=== PATIENT | male | born 1980 | race Two or more races ===

== ENCOUNTER 2024-08-22 19:09 | Emergency (ER) | payer MEDICAID, SELFPAY ==
[2024-08-22 19:09] VITALS: BMI 22.4
[2024-08-22 20:17] VITALS: BP 128/83; PULSE 76; RESP 18; TEMP 37; O2SAT 97
--- NOTE | 2024-08-22 20:26 | PD.EDANX ---
ED Anxiety RME/HPI General Chief Complaint: Recheck/Abnormal Lab/Rx Stated Complaint: BP AT HOME 141/101 Time Seen by Provider: 08/22/24 19:24 Arrival date/time: 08/22/24 19:09 RME / HPI RME / HPI narrative: 43-year-old male presents with complaints of an elevated blood pressure reading at home. States he checks his blood pressure at home and it was 141/101. He also describes an episode earlier today where he was at the store and his hands got tingly as did his tongue. He had a little bit of lightheadedness as well. He states that after seeing that his blood pressure was elevated he looked up information about elevated blood pressure on the Internet and that caused him to become anxious. Denies chest pain or shortness of breath. Denies abdominal pain. Denies headache. Related Data Home Medications ?Medication ?Instructions ?Recorded ?Confirmed No Known Home Medications 08/26/19 08/26/19 Allergies Allergy/AdvReac Type Severity Reaction Status Date / Time No Known Allergies Allergy Verified 08/22/24 19:11 Review of Systems Review of Systems Narrative Review of Systems: Review of systems negative except as outlined in the HPI. ED Exam Narrative Physical exam: Constitutional: no acute distress, age appropriate, non-toxic Eyes: PERRL, conjunctivae w/o pallor, EOMI HENT: normocephalic, atraumatic. Oral mucosa moist Respiratory Effort: no stridor, effort normal, no retractions Breath sounds: Clear bilaterally; No rales, No rhonchi, No wheezing Cardiovascular: regular rhythm, S1 and S2 normal, no murmur Abdominal: soft; non-distended, non-tender Musculoskeletal: no deformities, no swelling, no LE edema Skin: warm, dry; No rash Neurology: alert, oriented X 4. Normal gait. Moves all extremities spontaneously. Psychology: cooperative, normal mood Course Quality Measures none Vital Signs Vital signs: Vital Signs Temperature 98.6 F 08/22/24 20:17 Pulse Rate 76 08/22/24 20:17 Respiratory Rate 18 08/22/24 20:17 Blood Pressure 128/83 08/22/24 20:17 Pulse Oximetry (%) 97 08/22/24 20:17 Oxygen Delivery Method Room Air 08/22/24 20:17 Anxiety MDM Narrative MDM Narrative: 43-year-old male presents with elevated blood pressure reading at home and lightheadedness. Differential diagnoses include anxiety, panic attack, hypertensive urgency, hypertensive emergency. Patient appears well and nontoxic, in no acute distress. BP here is 128/83. He is not having chest pain or shortness of breath. Do not suspect hypertensive urgency or hypertensive emergency. Symptoms most consistent with anxiety. Discussed with patient that he should follow-up with his PCP in the next 2 to 3 days for recheck of blood pressure and to address symptoms of anxiety. Strict return to ED precautions given. Patient data External records reviewed:: [facility] previous records Clinical information provided by:: patient Social determinants that could affect healthcare access:: none Patient has the following chronic illnesses:: None How is presenting disease/condition affected by chronic disease/condition?: no chronic disease Evaluation data The following diagnostics were reviewed and interpreted by me:: other (specify) (N/A) Lab and/or radiology exams considered but not ordered:: Consider labs and chest x-ray, but not indicated. See MDM section above Interpretation Summary: N/A Medications / Prescriptions Medications or Prescriptions considered but not ordered:: N/A Medication administrations:: N/A Consultations Consultation(s) initiated? (list below): No Diagnosis Differential diagnosis anxiety: other (See MDM section above) Most likely diagnosis given after review of the tests above:: Acute anxiety Admission Indicated Admission indicated?: not indicated Admission Request Was there a request for admission?: No Disposition Plan Disposition Plan: Discharge Discharge Attestation Discharge Attestation: The patient and all family members were given an opportunity to ask questions and understood the discharge instructions. Discharge instructions specifically effects, indications for sooner follow up or return to the emergency department, and the expected course of current diagnosis. Patient condition: Stable Discharge Plan Plan Patient Disposition: HOME (Self Care) Prescriptions/Referrals Prescriptions/Med Rec: No Action No Known Home Medications Referrals: No Primary/Family,Physician [Primary Care Provider] - In 1 week Problem List Clinical Impression: Acute anxiety Patient/Caregiver Discharge Instructions Education Materials: ED Anxiety Reaction Additional Instructions: Follow-up with your PCP this week. Return to the ED for any new or worsening symptoms Print Language: Senegalese Stand Alone Forms: Nelda Award Info., Patient Portal Info Letter
== END 2024-08-22 20:59 | disposition home or self-care (01) ==
PROVIDERS: Emergency Provider Emergency Medicine
DX: F41.9 Anxiety disorder, unspecified (principal)
CPT/HCPCS: 99281

== ENCOUNTER 2025-02-18 00:22 | Emergency (ER) | payer MEDICAID, SELFPAY ==
[2025-02-18 00:23] VITALS: BMI 22.4
[2025-02-18 00:41] VITALS: BP 126/88; PULSE 84; RESP 20; TEMP 36.8; O2SAT 95
--- NOTE | 2025-02-18 01:07 | XR_ITS ---
Examination: PA chest single view TECHNIQUE: Upright PA chest single view Date and time: February 18, 2025, 0134 hours INDICATIONS: Shortness of breath chest pain today. FINDINGS: Normal heart size. Lungs are clear. Osseous structures are intact IMPRESSION: No active disease.
--- NOTE | 2025-02-18 01:07 | EKG_ITS ---
[facility] Test Date: 2025-02-18 Pat Name: EUSEBIA MAS Department: Room: - Gender: Male Physical Therapy Asst: : 1980 Requested By: Sammy Mir Order Number: [id number] Reading MD: Sammy Mir Measurements Intervals [place] Rate: 76 P: 45 AL: 146 QRS: 169 QRSD: 74 T: 29 QT: 344 QTc: 389 Interpretive Statements SINUS RHYTHM WITH SINUS ARRHYTHMIA INDETERMINATE AXIS POSSIBLE RIGHT VENTRICULAR HYPERTROPHY [SOME/ALL OF: PROMINENT R IN V1, LATE TRANSITION, RAD, AMADOR, SSS] Compared to ECG 05/29/2023 01:47:32 Left posterior fascicular block no longer present /store/S0/[id number]
[2025-02-18 02:28] LABS: Alanine Aminotransferase 45 U/L (10-49); Albumin, Serum 4.5 gm/dL (3.5-5.0); Albumin/Globulin Ratio 1.7 (1.2-2.2); Alkaline Phosphatase 97 U/L (46-116); Anion Gap 10 (7-16); Aspartate Amino Transferase 26 U/L (0-34); BUN/Creatinine Ratio 11 Ratio (12-20); Bilirubin,Total 0.4 mg/dL (0.3-1.2); Blood Urea Nitrogen 11 mg/dL (9-23); Calcium 8.8 mg/dL (8.3-10.6); Calcium (Corrected) 8.8 mg/dL (8.5-10.1); Carbon Dioxide 27.6 mMol/L (20.0-31.0); Chloride 104 mMol/L (98-107); Creatinine (Component) 1.0 mg/dL (0.6-1.3); Estimated Creatinine Clearance 83.3 mL/min (>60); Globulin 2.7 gm/dL (2.3-3.5); Glucose 97 mg/dL (74-106); Osmolality,Calculated 282 (275-295); Potassium 3.7 mMol/L (3.4-5.1); Sodium 142 mMol/L (136-145); Total Protein 7.2 gm/dL (5.7-8.2); Troponin I < 0.020 ng/mL (0.0-0.045); eGFR > 60 See Note
[2025-02-18 02:43] LABS: Basophils # (Auto) 0.1 Thou/mm3 (0.0-0.2); Basophils % (Auto) 1 % (0-2.5); Eosinophils # (Auto) 0.1 Thou/mm3 (0.0-0.5); Eosinophils % (Auto) 1 % (0-10); Hematocrit 44.2 % (41.0-53.0); Hemoglobin 15.2 g/dL (13.5-16.0); Immature Granulocytes Auto 0.03 Thou/mm3 (0.00-0.00); Lymphocytes # (Auto) 3.5 Thou/mm3 (1.0-4.8); Lymphocytes % (Auto) 38 % (10-50); Mean Corpuscular HGB Conc 34.4 g/dl (31.0-37.0); Mean Corpuscular Hemoglobin 29.7 pg (25.0-35.0); Mean Corpuscular Volume 86 fL (80-100); Monocytes # (Auto) 0.7 Thou/mm3 (0.0-0.8); Monocytes % (Auto) 8 % (0-12); Neutrophils # (Auto) 4.9 Thou/mm3 (1.8-7.7); Neutrophils % (Auto) 53 % (37-80); Nucleated Red Blood Cell # 0.00 Thou/mm3 (0.00-0.00); Nucleated Red Blood Cell % 0 /100 WBC (0); Platelet Count 280 Thou/mm3 (140-440); RDW Standard Deviation 38.4 fL (35.1-43.9); Red Blood Count 5.12 Miln/mm3 (4.50-5.90); White Blood Count 9.4 Thou/mm3 (3.8-10.6)
--- NOTE | 2025-02-18 02:50 | EDNOTE_ITS ---
ED SOB =RME/HPI General Chief Complaint: Anxiety Stated Complaint: SHORTNESS OF BREATH Time Seen by Provider: 02/18/25 00:41 Arrival date/time: 02/18/25 00:22 This is a case of 44-year-old male who came in in the emergency room due to palpitation and shortness of breath 1 hour prior to arrival in the emergency r oom patient drink a alcohol started to have some shortness of breath and mild palpitation patient started to have panic attacks thus patient decided to start consult here in the emergency room denies any suicidal or homicidal ideation denies any hallucination Limitations: no limitations Related Data Previous Rx's ?Medication ?Instructions ?Recorded hydroxyzine pamoate 25 mg capsule 25 mg PO BID PRN anx iety #10 caps 02/18/25 Allergies Allergy/AdvReac Type Severity Reaction Status Date / Time No Known Allergies Allergy Verified 02/18/25 00:30 Review of Systems Review of Systems Systems Reviewed: All systems reviewed, normal except as documented Constitutional Constitutional: Reports system reviewed and no additional complaints, except as documented and Reports as per HPI Cardiovascular Cardiovascular: Reports system reviewed and no additional complaints, except as documented, Reports as per HPI, Denies acrocyanosis, Denies chest pain, Denies chest pain at rest, Denies chest pain with activity, Denies claudication, Denies diaphoresis, Reports dyspnea, Denies dyspnea on exertion, Denies edema, Denies irregular heart rhythm, Denies leg edema, Denies leg ulcers, Denies lightheadedness, Denies orthopnea, Denies palpitations, Denies paroxysmal nocturnal dyspnea, Denies pedal edema, Denies radiating jaw, neck or arm pain, Reports rapid heart rate, Denies slow heart rate and Denies syncope Respiratory Respiratory: Reports system reviewed and no additional complaints, except as documented, Denies as per HPI, Denies chest congestion, Reports dyspnea and Denies dyspnea on exertion Genitourinary Genitourinary: Denies change in libido Musculoskeletal Musculoskeletal: Reports as per HPI Neurologic Neurologic: Reports system reviewed and no additional complaints, except as documented, Reports as per HPI, Denies behavioral changes, Denies confusion, Denies memory loss and Denies syncope Psychiatric Psychiatric: Reports system reviewed and no additional complaints, except as documented, Denies as per HPI, Denies abnormal sleep pattern, Denies anhedonia, Reports anxiety, Denies auditory hallucinations, Denies behavioral changes, Denies change in appetite, Denies change in libido, Denies confusion, Denies depression, Denies difficulty concentrating, Denies hallucinations, Denies homicidal ideation, Denies hopelessness, Denies irritability, Denies memory loss, Denies mood swings, Denies panic attacks, Denies paranoia, Denies suicidal ideation, Denies tactile hallucinations and Denies visual hallucinations Endocrine Endocrine: Denies change in libido and Denies palpitations ED Exam General Limitations: Present no limitations General appearance: Present alert, in no apparent distress and anxious; Absent appears intoxicated, lethargic, obtunded, in distress, obese or cachectic Head Head exam: Present atraumatic Eye Eye exam: Present normal appearance, PERRL and EOMI ENT ENT exam: Present normal exam, normal oropharynx and mucous membranes moist Neck Neck exam: Present normal inspection, full ROM and trachea midline; Absent tenderness, meningismus, lymphadenopathy or thyromegaly Chest Chest inspection: Present normal inspection and symmetric chest wall rise Respiratory Respiratory exam: Present normal lung sounds bilaterally; Absent respiratory distress, wheezes, stridor, accessory muscle use or prolonged expiratory phase Cardiovascular Cardiovascular exam: Present regular rate, normal rhythm and normal heart sounds Abdominal Exam Abdominal exam: Present soft and normal bowel sounds; Absent distention, tenderness, guarding, rebound, diminished bowel sounds or hyperactive bowel sounds Extremities Exam Extremities exam: Present normal inspection and full ROM Back Exam Back exam: Present normal inspection and full ROM Neurological Exam Neurological exam: Present alert, oriented X3, CN II-XII intact, normal gait and reflexes normal; Absent motor sensory deficit Psychiatric Psychiatric exam: Present normal affect, normal mood and anxious; Absent depressed, agitated, flat affect, manic, homicidal ideation or suicidal ideation Skin Skin exam: Present warm, dry, intact and normal color Course Quality Measures none Orders Category Date Time Status EKG (ED ONLY) *Do not use* NOW Care 02/18/25 01:07 Completed EKG (ED Only) Stat Exams 02/18/25 01:07 Draft XR chest 1V portable Stat Exams 02/18/25 01:07 Taken CBC Stat Lab 02/18/25 01:59 Completed CMP [Comprehensive Metabolic Panel] Stat Lab 02/18/25 01:59 Completed Troponin I Stat Lab 02/18/25 01:59 Completed LORazepam [Ativan] Med 02/18/25 02:41 Discontinued 1 mg PO X1 ONE Vital Signs Vital signs: Vital Signs Temperature 98.2 F 02/18/25 00:41 Pulse Rate 84 02/18/25 00:41 Respiratory Rate 20 02/18/25 00:41 Blood Pressure 126/88 H 02/18/25 00:41 Pulse Oximetry (%) 95 02/18/25 00:41 Oxygen Delivery Method Room Air 02/18/25 00:41 Shortness of Breath / Dyspnea MDM Narrative MDM Narrative:: This is a case of 44-year-old male who came in in the emergency room due to palpitation and shortness of breath 1 hour prior to arrival in the emergency room patient drink a alcohol started to have some shortness of breath and mild palpitation patient started to have panic attacks thus patient decided to start consult here in the emergency room denies any suicidal or homicidal ideation denies any hallucination physical examination patient is awake alert oriented not in distress nontoxic looking mild anxiety no depression denies suicidal or homicidal ideation lungs sound is clear no crackles no rales no retraction no stridor HEENT exam is normal normal rate regular rhythm no murmur patient blood test showed no leukocytosis no anemia kidney and liver function is normal no electrolyte imbalance troponin is negative EKG sinus rhythm 85 heart rate chest x-ray normal at this point patient blood and imaging were normal patient will be discharged as anxiety patient was given Ativan here patient condition markedly improved and resolved patient will follow-up with PCP to be referred to french instructor for palpitation for possible echocardiogram stress test and Holter monitor and to be referred to psychologist psychiatrist for anxiety patient was discharged with Vistaril Patient was discharged with comfortable condition walking with stable gait. Patient verbalized no further complains explained diagnosis and answered patient question. Patient is comfortable with the proposed management plan including the need to follow up with his/her primary care physician and any specialist if applicable Discussed patient for any urgent condition or worsening sx, He/She needed to go to emergency room immediately or call 911. Patient acknowledge the responsibility to follow up as instructed and to monitor her/his symptoms. For any persistence of the symptoms for more than 3-5 days return precaution advised. Discussed the result of the test and was given printed discharge instruction Patient data External records reviewed:: [facility] previous records Clinical information provided by:: patient Social determinants that could affect healthcare access:: none Patient has the following chronic illnesses:: None How is presenting disease/condition affected by chronic disease/condition?: no chronic disease Evaluation data The following diagnostics were reviewed and interpreted by me:: lab results and radiology exam(s) Lab and/or radiology exams considered but not ordered:: Reviewed Interpretation Summary: Reviewed Medications / Prescriptions Medications or Prescriptions considered but not ordered:: Given Medication administrations:: Medication Administration History Discontinued Medications Lorazepam (Lorazepam 0.5 Mg Tablet) 1 mg PO X1 ONE Stop: 02/18/25 02:42 Given Consultations Consultation(s) initiated? (list below): No Diagnosis Shortness of Breath Differential Diagnosis: other (Anxiety) Most likely diagnosis given after review of the tests above:: Anxiety Admission Indicated Admission indicated?: not indicated (Not indicated) Admission Request Was there a request for admission?: No Admission Attestation Admission request attestation: Not indicated Disposition Plan Disposition Plan: Discharge Discharge Attestation Discharge Attestation: The patient and all family members were given an opportunity to ask questions and understood the discharge instructions. Discharge instructions specifically effects, indications for sooner follow up or return to the emergency department, and the expected course of current diagnosis. Patient condition: Stable Discharge Plan Plan Patient Disposition: HOME (Self Care) Patient condition on transfer: Stable Prescriptions/Referrals Prescriptions/Med Rec: New hydroxyzine pamoate 25 mg capsule 25 mg PO BID PRN (Reason: anxiety) Qty: 10 0RF Problem List Clinical Impression: Palpitation, Anxiety Patient/Caregiver Discharge Instructions Education Materials: ED Anxiety Reaction, ED Palpitations Additional Instructions: Follow-up with your primary care physician in 2 days for reevaluation and to be referred to french instructor for further evaluation and treatment of palpitation for possible echocardiogram stress test and Holter monitor and to be referred to psychology psychiatry for anxiety for any recurrence worsening symptoms or any emergent concerns return in the emergency room immediately or call 911 take your medication as directed keep hydrated Print Language: Kyrgyz Stand Alone Forms: Nelda Award Info., Patient Portal Info Letter PA/AIDEE Supervising Physician TATUM/AIDEE Supervising Physician: dr mak
== END 2025-02-18 04:03 | disposition home or self-care (01) ==
LOC: SERX 03:51
PROVIDERS: Nurse Practitioner Family; Emergency Provider Emergency Medicine
DX: R00.2 Palpitations (principal); F41.9 Anxiety disorder, unspecified
CPT/HCPCS: 36415; 71045; 80053; 84484; 85025; 93005; 99283; A9270

== ENCOUNTER 2025-04-07 22:29 | Emergency (ER) | payer MEDICAID, SELFPAY ==
[2025-04-07 22:30] VITALS: BMI 22.4
--- NOTE | 2025-04-07 22:32 | EKG_ITS ---
[facility] Test Date: 2025-04-07 Pat Name: EUSEBIA MAS Department: Room: - Gender: Male Cardiac Rn: : 1980 Requested By: ED Temporary Provider Order Number: [id number] Reading MD: ED Temporary Provider Measurements Intervals [place] Rate: 74 P: 41 [place]: 146 QRS: -47 QRSD: 78 T: 34 QT: 346 QTc: 384 Interpretive Statements SINUS RHYTHM INDETERMINATE AXIS Compared to ECG 02/18/2025 01:08:44 Sinus arrhythmia no longer present /store/S0/[id number]
[2025-04-07 22:47] VITALS: BP 121/80; PULSE 81; RESP 16; TEMP 36.8; O2SAT 98
--- NOTE | 2025-04-07 23:13 | XR_ITS ---
Examination: Abdomen sonogram, Limited Date and time of exam: April 07, 2000 7560 5:00 PM INDICATIONS: Epigastric pain and nausea beginning 5 days ago, on cholecystectomy history Technique: Real-time kang scale transabdominal sonographic images of the upper abdomen obtained. Findings: Absent gallbladder Normal common bile duct 0.5 cm Pancreatic head 2.8 cm Liver 12.5 cm no liver lesions Normal hepatopedal portal venous flow Patent IVC IMPRESSION: Normal common bile duct Liver normal size no focal liver lesions.
--- NOTE | 2025-04-07 23:13 | XR_ITS ---
Examination: PA chest single view TECHNIQUE: Upright PA chest single view Date and time: April 07, 2025 1137 hours INDICATIONS: Chest pain and shortness of breath beginning 2 days ago. FINDINGS: Normal heart size. Lungs are clear. Osseous structures are intact. IMPRESSION: No active disease.
[2025-04-07 23:33] LABS: Basophils # (Auto) 0.1 Thou/mm3 (0.0-0.2); Basophils % (Auto) 1 % (0-2.5); Eosinophils # (Auto) 0.1 Thou/mm3 (0.0-0.5); Eosinophils % (Auto) 2 % (0-10); Hematocrit 46.6 % (41.0-53.0); Hemoglobin 15.7 g/dL (13.5-16.0); Immature Granulocytes Auto 0.02 Thou/mm3 (0.00-0.00); Lymphocytes # (Auto) 2.9 Thou/mm3 (1.0-4.8); Lymphocytes % (Auto) 42 % (10-50); Mean Corpuscular HGB Conc 33.7 g/dl (31.0-37.0); Mean Corpuscular Hemoglobin 29.6 pg (25.0-35.0); Mean Corpuscular Volume 88 fL (80-100); Monocytes # (Auto) 0.7 Thou/mm3 (0.0-0.8); Monocytes % (Auto) 10 % (0-12); Neutrophils # (Auto) 3.1 Thou/mm3 (1.8-7.7); Neutrophils % (Auto) 45 % (37-80); Nucleated Red Blood Cell # 0.00 Thou/mm3 (0.00-0.00); Nucleated Red Blood Cell % 0 /100 WBC (0); Platelet Count 250 Thou/mm3 (140-440); RDW Standard Deviation 39.3 fL (35.1-43.9); Red Blood Count 5.30 Miln/mm3 (4.50-5.90); White Blood Count 6.9 Thou/mm3 (3.8-10.6)
[2025-04-07 23:47] LABS: B-Type Natriuretic Peptide < 20 pg/mL (0-100)
[2025-04-07 23:48] LABS: Alanine Aminotransferase 62 U/L (10-49); Albumin, Serum 4.6 gm/dL (3.5-5.0); Albumin/Globulin Ratio 1.9 (1.2-2.2); Alkaline Phosphatase 100 U/L (46-116); Anion Gap 10 (7-16); Aspartate Amino Transferase 39 U/L (0-34); BUN/Creatinine Ratio 13 Ratio (12-20); Bilirubin,Total 0.4 mg/dL (0.3-1.2); Blood Urea Nitrogen 12 mg/dL (9-23); Calcium 9.8 mg/dL (8.3-10.6); Calcium (Corrected) 9.8 mg/dL (8.5-10.1); Carbon Dioxide 29.3 mMol/L (20.0-31.0); Chloride 104 mMol/L (98-107); Creatinine (Component) 0.9 mg/dL (0.6-1.3); Estimated Creatinine Clearance 92.6 mL/min (>60); Globulin 2.4 gm/dL (2.3-3.5); Glucose 98 mg/dL (74-106); Lipase 58 U/L (12-53); Osmolality,Calculated 284 (275-295); Potassium 3.8 mMol/L (3.4-5.1); Sodium 143 mMol/L (136-145); Total Protein 7.0 gm/dL (5.7-8.2); Troponin I < 0.020 ng/mL (0.0-0.045); eGFR > 60 See Note
[2025-04-07 23:51] LABS: Collection Type, Urine Clean Catch; Squamous Epithelial Cell,Urine 0 /hpf (0-5)
[2025-04-08] LABS: Bacteria,Urine Rare; Bilirubin,Urine Negative (Negative); Blood,Urine Negative (Negative); Budding Yeast,Urine Present; Clarity,Urine Clear (Clear/Hazy); Color,Urine Yellow (Lt Yel-Yel); Glucose, Urine Negative (Negative); Ketones,Urine Negative (Negative); Leukocyte Esterase,Urine Negative (Negative); Nitrite,Urine Negative (Negative); PH,Urine 6.0 (5.0-7.0); Protein,Urine Trace (Neg - Trace); RBC,Urine 2 /hpf (0-3); Specific Gravity,Urine 1.035 (1.001-1.035); Urobilinogen,Urine Negative mg/dL (0.0-1.0); WBC,Urine 1 /hpf (0-5)
--- NOTE | 2025-04-08 00:18 | PD.EDCHEST ---
ED Chest Pain RME/HPI General Chief Complaint: Chest Pain Stated Complaint: CHEST PAIN THAT RADIATES TO BACK AND ABDOMEN Time Seen by Provider: 04/07/25 22:42 Arrival date/time: 04/07/25 22:29 This is a case of 44-year-old male with history of cholecystectomy and anxiety who came in in the emergency room due to chest pain mostly on the left upper chest for 5 days on and off burning in character radiating to the back and epigastric area patient denies any shortness of breath palpitation denies any nausea vomiting constipation diarrhea or blood in stool persistence of the symptoms this patient decided to start consult here in the emergency room Limitations: no limitations Related Data Previous Rx's ?Medication ?Instructions ?Recorded hydroxyzine pamoate 25 mg capsule 25 mg PO BID PRN anxiety #10 caps 02/18/25 famotidine 20 mg tablet 20 mg PO BID #60 tabs 04/08/25 omeprazole 20 mg capsule,delayed 20 mg PO QDAY #30 caps 04/08/25 release Allergies Allergy/AdvReac Type Severity Reaction Status Date / Time No Known Allergies Allergy Verified 04/07/25 22:29 Review of Systems Review of Systems Systems Reviewed: All systems reviewed, normal except as documented Constitutional Constitutional: Reports system reviewed and no additional complaints, except as documented and Reports as per HPI Cardiovascular Cardiovascular: Reports system reviewed and no additional complaints, except as documented, Reports as per HPI, Reports chest pain and Denies dyspnea Respiratory Respiratory: Reports system reviewed and no additional complaints, except as documented, Reports as per HPI and Denies dyspnea Gastrointestinal Gastrointestinal: Reports system reviewed and no additional complaints, except as documented, Reports as per HPI, Reports abdominal pain, Denies diarrhea, Denies excessive flatus, Denies loose stools, Denies nausea and Denies vomiting Genitourinary Genitourinary: Reports system reviewed and no additional complaints, except as documented and Reports as per HPI Neurologic Neurologic: Reports system reviewed and no additional complaints, except as documented and Reports as per HPI Past Medical History Past Medical History CARDIAC: Negative Congestive Heart Failure RESPIRATORY: Negative Chronic Obstructive Pulmonary Disease (COPD) GENITOURINARY: Negative Renal Disease ENDOCRINE: Negative Diabetes Mellitus Type 1 or Diabetes Mellitus Type 2 Social History SMOKING STATUS: Never smoker ED Exam General Limitations: Present no limitations General appearance: Present alert, in no apparent distress and other (Patient is awake alert oriented not in distress nontoxic looking well-hydrated well-nourished) Head Head exam: Present atraumatic, normocephalic and normal inspection Eye Eye exam: Present normal appearance, PERRL and EOMI ENT ENT exam: Present normal exam, normal oropharynx and mucous membranes moist Neck Neck exam: Present normal inspection, full ROM and trachea midline Chest Chest inspection: Present normal inspection and symmetric chest wall rise Respiratory Respiratory exam: Present normal lung sounds bilaterally; Absent respiratory distress, wheezes, stridor, accessory muscle use or prolonged expiratory phase Cardiovascular Cardiovascular exam: Present regular rate, normal rhythm and normal heart sounds; Absent bradycardia, tachycardia, irregular rhythm, systolic murmur, diastolic murmur or gallop Abdominal Exam Abdominal exam: Present soft and normal bowel sounds; Absent distention, tenderness, guarding, rebound, rigidity, diminished bowel sounds, hyperactive bowel sounds, hypoactive bowel sounds, psoas sign, obturator sign, Shelton's sign, Rovsing's sign or ascites Extremities Exam Extremities exam: Present normal inspection and full ROM Back Exam Back exam: Present normal inspection and full ROM Neurological Exam Neurological exam: Present alert, oriented X3, CN II-XII intact, normal gait and reflexes normal; Absent motor sensory deficit Psychiatric Psychiatric exam: Present normal affect and normal mood Skin Skin exam: Present warm, dry, intact and normal color Course Quality Measures none Orders Category Date Time Status EKG (ED ONLY) *Do not use* NOW Care 04/07/25 22:32 Completed EKG (ED Only) Stat Exams 04/07/25 22:32 Draft US gall bladder Stat Exams 04/07/25 23:13 Completed XR chest 1V portable Stat Exams 04/07/25 23:13 Completed BNP [B-Type Natriuretic Peptide] Stat Lab 04/07/25 23:20 Completed CBC Stat Lab 04/07/25 23:20 Completed Comprehensive Metabolic Panel Stat Lab 04/07/25 23:20 Completed Lipase Stat Lab 04/07/25 23:20 Completed Troponin I Stat Lab 04/07/25 23:20 Completed Urinalysis Stat Lab 04/07/25 23:46 Completed Famotidine [Pepcid] Med 04/08/25 00:13 Once 40 mg PO X1 ONE Lidocaine 2% Viscous [Xylocaine 2% Viscous] Med 04/08/25 00:13 Once 15 ml PO X1 ONE Ondansetron Odt [Zofran Odt] Med 04/08/25 00:13 Once 4 mg PO X1 ONE mg Hyd/Al Hyd/Presley Susp [Maalox Susp] Med 04/08/25 00:13 Once 30 ml PO X1 ONE Vital Signs Vital signs: Vital Signs Temperature 98.2 F 04/07/25 22:47 Pulse Rate 81 04/07/25 22:47 Respiratory Rate 16 04/07/25 22:47 Blood Pressure 121/80 04/07/25 22:47 Pulse Oximetry (%) 98 04/07/25 22:47 Oxygen Delivery Method Room Air 04/07/25 22:47 Patient oxygen saturation is 98% in room air Chest Pain MDM Narrative MDM Narrative:: This is a case of 44-year-old male with history of cholecystectomy and anxiety who came in in the emergency room due to chest pain mostly on the left upper chest for 5 days on and off burning in character radiating to the back and epigastric area patient denies any shortness of breath palpitation denies any nausea vomiting constipation diarrhea or blood in stool persistence of the symptoms this patient decided to start consult here in the emergency room physical examination patient is awake alert oriented not in distress nontoxic looking well-hydrated well-nourished lungs sound is clear no crackles no rales no retraction restart heart normal rate regular rhythm no murmur abdominal exam is benign nonsurgical no guarding no rebound no rigidity no tenderness negative psoas negative straight or negative Rovsing's and McBurney's no Shelton sign negative CVA tenderness the rest of the physical examination and neurological exam is normal and unremarkable blood test shows no leukocytosis no anemia platelet is normal kidney function is normal liver function slightly elevated but not seen significant urinalysis is normal patient troponin is negative BNP is normal EKG showed sinus rhythm with a heart rate of 74 chest x-ray is normal ultrasound of the gallbladder is normal patient no physical examination and history patient symptoms suggestive of gastritis patient was given Zofran and GI cocktail which patient condition markedly improved abdominal exam is benign nonsurgical on the reassessment he was advised to follow-up with PCP in 2 days for reevaluation and to be referred to [facility] for chest pain for possible echocardiogram stress test and Holter monitor he needs to see also chief of hospital medicine for gastritis and possible EGD patient was prescribed with Pepcid and omeprazole patient understood very well the discharge instruction patient was advised for any worsening symptoms return precaution in the ER was advised Patient was discharged with comfortable condition walking with stable gait. Patient verbalized no further complains explained diagnosis and answered patient question. Patient is comfortable with the proposed management plan including the need to follow up with his/her primary care physician and any specialist if applicable Discussed patient for any urgent condition or worsening sx, He/She needed to go to emergency room immediately or call 911. Patient acknowledge the responsibility to follow up as instructed and to monitor her/his symptoms. For any persistence of the symptoms for more than 3-5 days return precaution advised. Discussed the result of the test and was given printed discharge instruction Patient data External records reviewed:: [facility] previous records Clinical information provided by:: patient Social determinants that could affect healthcare access:: none Patient has the following chronic illnesses:: None How is presenting disease/condition affected by chronic disease/condition?: no chronic disease Evaluation data The following diagnostics were reviewed and interpreted by me:: lab results and radiology exam(s) Lab and/or radiology exams considered but not ordered:: Reviewed Interpretation Summary: Reviewed Medications / Prescriptions Medications or Prescriptions considered but not ordered:: Given Medication administrations:: Medication Administration History Al Hydrox/Mg Hydrox/Simethicone (Mg Hyd/Al Hyd/Presley (Maalox Reg) Susp 30 Ml Udc) 30 ml PO X1 ONE Stop: 04/08/25 00:14 Famotidine (Famotidine 20 Mg Tablet) 40 mg PO X1 ONE Stop: 04/08/25 00:14 Lidocaine HCl (Lidocaine Viscous 2% 15 Ml Udc) 15 ml PO X1 ONE Stop: 04/08/25 00:14 Ondansetron HCl (Ondansetron Odt 4 Mg Tabrap) 4 mg PO X1 ONE; Protocol Stop: 04/08/25 00:14 Given Consultations Consultation(s) initiated? (list below): No Diagnosis Chest Pain Differential Diagnosis: atypical chest pain, costochondritis, chest pain and other (Gastritis ) Most likely diagnosis given after review of the tests above:: Chest pain of unknown etiology gastritis Admission Indicated Admission indicated?: not indicated Explain why admission is indicated or not indicated:: Not indicated Admission Request Was there a request for admission?: No Admission Attestation Admission request attestation: Not indicated Disposition Plan Disposition Plan: Discharge Discharge Attestation Discharge Attestation: The patient and all family members were given an opportunity to ask questions and understood the discharge instructions. Discharge instructions specifically effects, indications for sooner follow up or return to the emergency department, and the expected course of current diagnosis. Patient condition: Stable Discharge Plan Plan Patient Disposition: HOME (Self Care) Patient condition on transfer: Stable Prescriptions/Referrals Prescriptions/Med Rec: New famotidine 20 mg tablet 20 mg PO BID Qty: 60 0RF omeprazole 20 mg capsule,delayed release(DR/EC) 20 mg PO QDAY Qty: 30 0RF No Action hydroxyzine pamoate 25 mg capsule 25 mg PO BID PRN (Reason: anxiety) Qty: 10 0RF Referrals: Mohamud Daniel MD [Primary Care Provider] - In 1 week Problem List Clinical Impression: Chest pain of unknown etiology, Epigastric pain, Gastritis, Elevated liver enzymes Patient/Caregiver Discharge Instructions Education Materials: ED Chest Pain, Uncertain Cause, ED Gastritis (Adult), ED Epigastric Pain (Uncertain Cause) Additional Instructions: Follow-up with your primary care physician in 2 days for reevaluation and to be referred to [facility] for further evaluation and treatment of chest pain for possible echocardiogram stress test and Holter monitor he also need to see a chief of hospital medicine for further evaluation and treatment of gastritis for possible EGD to Persistent worsening symptoms or any emergent concern call 911 or go to the nearest emergency room take your medication as directed avoid skipping of meals avoid fatty fried high cholesterol Daily food avoid spicy food avoid alcohol soda or coffee keep hydrated he also need to see primary care physician to repeat your liver enzyme and to monitor as an outpatient Print Language: Indonesian Stand Alone Forms: [employer] Award Info., Patient Portal Info Letter PA/AIDEE Supervising Physician PA/AIDEE Supervising Physician: Dr. Khanna
[2025-04-08] MEDS: LIDOCAINE VISCOUS 2% 15 ML UDC PO (00:40)
[2025-04-08] MEDS: MG HYD/AL HYD/SIME (Maalox Reg) SUSP 30 ML UDC PO (00:40)
[2025-04-08] MEDS: FAMOTIDINE 20 MG TABLET 40 MG PO (00:40)
[2025-04-08] MEDS: ONDANSETRON ODT 4 MG TABRAP PO (00:41)
[2025-04-08 00:44] VITALS: BP 116/72; PULSE 72; RESP 18; TEMP 36.7; O2SAT 98
== END 2025-04-08 00:46 | disposition home or self-care (01) ==
PROVIDERS: Nurse Practitioner Family; Emergency Provider Emergency Medicine; PCP Family Medicine
DX: R07.9 Chest pain, unspecified (principal); K29.70 Gastritis, unspecified, without bleeding; Z90.49 Acquired absence of other specified parts of digestive tract; R74.8 Abnormal levels of other serum enzymes
CPT/HCPCS: 36415; 71045; 76705; 80053; 81001; 83690; 83880; 84484; 85025; 93005; 99283; J3490; Q0162; A9270

== ENCOUNTER 2025-07-26 19:46 | Emergency (ER) | payer MEDICAID, SELFPAY ==
[2025-07-26 19:47] VITALS: BMI 22.4
--- NOTE | 2025-07-26 20:17 | XR_ITS ---
EXAMINATION: PA chest single view TECHNIQUE: Upright PA chest single view Date and time: July 26, 2025, 2019 hours INDICATION: Shortness of breath beginning 2 days ago. FINDINGS: Normal heart size Lungs are clear. Intact osseous structures IMPRESSION: No active disease
[2025-07-26 20:22] VITALS: BP 147/87; PULSE 71; RESP 18; TEMP 37.2; O2SAT 98
[2025-07-26] MEDS: ACETAMINOPHEN 500 MG TABLET 1000 MG PO (20:40)
[2025-07-26 21:07] LABS: Collection Type, Urine Clean Catch; WBC,Urine 0 /hpf (0-5)
[2025-07-26 21:10] LABS: Basophils # (Auto) 0.0 Thou/mm3 (0.0-0.2); Basophils % (Auto) 1 % (0-2.5); Eosinophils # (Auto) 0.1 Thou/mm3 (0.0-0.5); Eosinophils % (Auto) 2 % (0-10); Hematocrit 45.2 % (41.0-53.0); Hemoglobin 15.5 g/dL (13.5-16.0); Immature Granulocytes Auto 0.02 Thou/mm3 (0.00-0.00); Lymphocytes # (Auto) 2.9 Thou/mm3 (1.0-4.8); Lymphocytes % (Auto) 45 % (10-50); Mean Corpuscular HGB Conc 34.3 g/dl (31.0-37.0); Mean Corpuscular Hemoglobin 29.9 pg (25.0-35.0); Mean Corpuscular Volume 87 fL (80-100); Monocytes # (Auto) 0.6 Thou/mm3 (0.0-0.8); Monocytes % (Auto) 9 % (0-12); Neutrophils # (Auto) 2.7 Thou/mm3 (1.8-7.7); Neutrophils % (Auto) 43 % (37-80); Nucleated Red Blood Cell # 0.00 Thou/mm3 (0.00-0.00); Nucleated Red Blood Cell % 0 /100 WBC (0); Platelet Count 279 Thou/mm3 (140-440); RDW Standard Deviation 38.3 fL (35.1-43.9); Red Blood Count 5.19 Miln/mm3 (4.50-5.90); White Blood Count 6.3 Thou/mm3 (3.8-10.6)
[2025-07-26 21:13] LABS: Bilirubin,Urine Negative (Negative); Blood,Urine Negative (Negative); Clarity,Urine Clear (Clear/Hazy); Color,Urine Lt-Yellow (Lt Yel-Yel); Glucose, Urine Negative (Negative); Ketones,Urine Negative (Negative); Leukocyte Esterase,Urine Negative (Negative); Nitrite,Urine Negative (Negative); PH,Urine 7.0 (5.0-7.0); Protein,Urine Negative (Neg - Trace); RBC,Urine 1 /hpf (0-3); Specific Gravity,Urine 1.017 (1.001-1.035); Squamous Epithelial Cell,Urine < 1 /hpf (0-5); Urobilinogen,Urine Negative mg/dL (0.0-1.0)
[2025-07-26 21:28] LABS: Anion Gap 10 (7-16); BUN/Creatinine Ratio 13 Ratio (12-20); Blood Urea Nitrogen 10 mg/dL (9-23); Calcium 9.6 mg/dL (8.3-10.6); Carbon Dioxide 30.1 mMol/L (20.0-31.0); Chloride 103 mMol/L (98-107); Creatinine (Component) 0.8 mg/dL (0.6-1.3); Estimated Creatinine Clearance 104.2 mL/min (>60); Glucose 82 mg/dL (74-106); Osmolality,Calculated 282 (275-295); Potassium 3.6 mMol/L (3.4-5.1); Sodium 143 mMol/L (136-145); Troponin I < 0.020 ng/mL (0.0-0.045); eGFR > 60 See Note
--- NOTE | 2025-07-26 21:41 | PD.EDADULT ---
ED General RME/HPI General Chief complaint: General Adult/Misc Complain Stated complaint: BLOOD PRESSURE HIGH, NO HX Time Seen by Provider: 07/26/25 20:11 Source: patient Arrival date/time: 07/26/25 19:46 Mode of arrival: ambulatory Limitations: no limitations RME / HPI RME / HPI narrative: This patient is a 44-year-old male who arrives to the ED today with generalized complaints of blood pressure concerns and possible anxiety issues. Patient states over the past few weeks he has noticed his blood pressure has been high at times. Patient denies any history of blood pressure concerns. Patient is not sure if because of the high blood pressure readings is causing him anxiety or if in turn, the anxiety is causing some blood pressure concerns. Patient states he has just been feeling generally unusual. Patient denies any fever nausea or vomiting. Patient was mildly hypertensive on arrival. Related Data Previous Rx's ?Medication ?Instructions ?Recorded hydroxyzine pamoate 25 mg capsule 25 mg PO BID PRN anxiety #10 caps 02/18/25 famotidine 20 mg tablet 20 mg PO BID #60 tabs 04/08/25 omeprazole 20 mg capsule,delayed 20 mg PO QDAY #30 caps 04/08/25 release alprazolam 0.5 mg tablet (Xanax) 0.5 mg PO BID PRN anxiety #10 tabs 07/26/25 Allergies Allergy/AdvReac Type Severity Reaction Status Date / Time No Known Allergies Allergy Verified 04/07/25 22:29 Review of Systems Review of Systems Systems Reviewed: All systems reviewed, normal except as documented Past Medical History Past Medical History CARDIAC: Negative Cardiac Arrhythmia or Congestive Heart Failure RESPIRATORY: Negative Chronic Obstructive Pulmonary Disease (COPD) GENITOURINARY: Negative Renal Disease ENDOCRINE: Negative Diabetes Mellitus Type 1 or Diabetes Mellitus Type 2 Social History SMOKING STATUS: Never smoker ED Exam Narrative Physical exam: Unremarkable physical evaluation. Patient was possibly mildly anxious. General Limitations: Present no limitations General appearance: Present alert and in no apparent distress Head Head exam: Present atraumatic Eye Eye exam: Present normal appearance, PERRL and EOMI ENT ENT exam: Present normal exam, normal oropharynx and mucous membranes moist Neck Neck exam: Present normal inspection, full ROM and trachea midline Chest Chest inspection: Present normal inspection and symmetric chest wall rise Respiratory Respiratory exam: Present normal lung sounds bilaterally Cardiovascular Cardiovascular exam: Present regular rate, normal rhythm and normal heart sounds Abdominal Exam Abdominal exam: Present soft and normal bowel sounds Extremities Exam Extremities exam: Present normal inspection and full ROM Back Exam Back exam: Present normal inspection and full ROM Neurological Exam Neurological exam: Present alert, oriented X3 and CN II-XII intact Psychiatric Psychiatric exam: Present normal affect and normal mood Skin Skin exam: Present warm, dry, intact and normal color Course Quality Measures none Orders Category Date Time Status XR chest 1V portable Stat Exams 07/26/25 20:17 Taken BMP [Basic Metabolic Panel] Stat Lab 07/26/25 20:34 Completed CBC Stat Lab 07/26/25 20:34 Completed Troponin I Stat Lab 07/26/25 20:34 Completed UA [Urinalysis] Stat Lab 07/26/25 20:55 Completed Acetaminophen Tab [Tylenol ES Tab] Med 07/26/25 20:16 Discontinued 1,000 mg PO X1 ONE As noted above Vital Signs Vital signs: Vital Signs Temperature 99 F 07/26/25 20:22 Pulse Rate 71 07/26/25 20:22 Respiratory Rate 18 07/26/25 20:22 Blood Pressure 147/87 H 07/26/25 20:22 Pulse Oximetry (%) 98 07/26/25 20:22 Oxygen Delivery Method Room Air 07/26/25 20:22 As noted above Discharge Plan Plan Patient Disposition: HOME (Self Care) Prescriptions/Referrals Prescriptions/Med Rec: New alprazolam [Xanax] 0.5 mg tablet 0.5 mg PO BID PRN (Reason: anxiety) Qty: 10 0RF No Action hydroxyzine pamoate 25 mg capsule 25 mg PO BID PRN (Reason: anxiety) Qty: 10 0RF famotidine 20 mg tablet 20 mg PO BID Qty: 60 0RF omeprazole 20 mg capsule,delayed release(DR/EC) 20 mg PO QDAY Qty: 30 0RF Referrals: Mohamud Daniel MD [Primary Care Provider, Family Practice] - In 1 week Problem List Clinical Impression: Anxiety Patient/Caregiver Discharge Instructions Education Materials: Anxiety Disorders Tx Therapy Additional Instructions: Advised patient utilize medication as needed for symptomatic relief. Patient should follow-up with primary care provider for discussions related to today's visit and possible mental health referral. Print Language: Spanish Stand Alone Forms: [employer] Award Info., Patient Portal Info Letter MDM Narrative MDM hospital course (for use when minimal MDM required): All studies performed at the ED were evaluated by me personally. Serum studies and urinalysis unremarkable for any systemic concerns. Chest x-ray was unremarkable for any intrapulmonary consolidation or concerns. Patient's blood pressure was only mildly elevated arrival. Advised patient that all the studies were unremarkable and therefore, patient may be experiencing some anxiety concerns. Advised patient follow-up with his primary care provider for discussions related to today's visit and possible mental health evaluation. Clinical Information Provided by: patient Medical Records reviewed [facility] Meds/Rx considered, not ordered None Labs/Rad/Tests considered, not ordered None Chronic Illness/Social Conditions which may negatively complicate care or outcome(s)-explain: None or not applicable Imaging Imaging interpretation: interpreted by me Medication Administration(s) none Medication Administration History Discontinued Medications Acetaminophen (Acetaminophen 500 Mg Tablet) 1,000 mg PO X1 ONE Stop: 07/26/25 20:17 Last Admin: 07/26/25 20:40 Dose: 1,000 mg Documented By: SOL Diagnosis Differential Diagnosis ED Complaint MDM: Electrolyte abnormality, sepsis, intrapulmonary concern Diagnoses ruled out and/or further discussions: Any conditions related to physiologic complaints. I believe the patient has some anxiety issues.
[2025-07-26 22:28] VITALS: BP 137/92; PULSE 70; RESP 18; TEMP 36.9; O2SAT 97
== END 2025-07-26 22:36 | disposition home or self-care (01) ==
PROVIDERS: Physician Assistant; Emergency Provider Emergency Medicine; PCP Family Medicine
DX: F41.9 Anxiety disorder, unspecified (principal); R06.02 Shortness of breath
CPT/HCPCS: 36415; 71045; 80048; 81001; 84484; 85025; 99283; A9270